=== PATIENT | male | born 1975 | race Caucasian/White ===

== ENCOUNTER 2020-02-08 13:27 | Outpatient (CLI) | payer OTHER ==
--- NOTE | 2020-02-08 15:16 | RAD ---
LEFT WRIST 3 VIEWS: HISTORY: Left wrist pain following an injury. FINDINGS: No evidence for acute fracture or dislocation. If the patient has persistent or worsening pain, followup examination in 5-7 days versus additional i maging with MRI should be considered. POS: [facility]
== END 2020-02-08 13:28 | disposition home or self-care (01) ==
LOC: SCSRAD 13:27
PROVIDERS: ATTEND Family Medicine
DX: M25.532 Pain in left wrist (principal)